=== PATIENT | male | born 1960 | race Caucasian/White ===

== ENCOUNTER → 2019-09-30 13:37 | Outpatient (BNVA) | payer OTHER, SELFPAY | PROVIDERS: PCP Family Medicine; Visit Provider Nurse Practitioner | DX: R50.9 Fever, unspecified (principal) | CPT/HCPCS: 85025; 87804 ==

== ENCOUNTER 2020-03-30 11:25 | Outpatient (CLI) | payer OTHER, SELFPAY ==
--- NOTE | 2020-03-30 11:30 | MR_ITS ---
WS: [id number] MRI HEAD WITH CONTRAST TECHNIQUE: Sagittal T1, T2 axial, T2 axial FLAIR, axial susceptibility weighted imaging, axial diffus ion weighted images, and coronal T2 images were obtained. Pre and post-T1 axial and post T1 coronal i mages. ADC and FSPGR images. CLINICAL INFORMATION: HEADACHE DUE TO INTRACRANIAL DISEASE COMPARISON: None. FINDINGS: No evidence of restricted diffusion to suggest acute ischemia. Ventricular system and basal cisterns are patent. Minimal small vessel changes. Moderate parenchymal volume loss. Normal posterior fossa. N ormal vascular flow voids at the skull base. No extra-axial fluid collections. Mild mucosal thickenin g in the paranasal sinuses. Mild mucosal thickening left mastoid air cells. Normal optic chiasm and pituitary infundibulum. Temporal lobes and hippocampal formations are normal in appearance. No hemosiderin on susceptibly weighted images. No abnormal gadolinium enhancement. Nor mal dural venous sinuses. MR/MR head wo/w con [id number] IMPRESSION: 1. No evidence of restricted diffusion to suggest acute ischemia. 2. Minimal small vessel changes. Moderate parenchymal volume loss. 3. No hydrocephalus. 4. No abnormal intracranial enhancement. 5. Mild mucosal thickening paranasal sinuses and mastoid air cells. 6. No other significant findings.
[2020-03-30 12:19] LABS: Blood Urea Nitrogen 20 mg/dL (8-23); Glomerular Filtration Rate 56.3 mL/min (90-130)
== END 2020-03-30 11:26 | disposition home or self-care (01) ==
LOC: RADSHAW 11:29
PROVIDERS: PCP Family Medicine; Visit Provider Family Medicine
DX: R51 Headache (principal)
CPT/HCPCS: 70553; 82565; 84520; A9579

== ENCOUNTER 2020-08-19 11:11 | Outpatient (CLI) | payer OTHER, SELFPAY ==
[2020-08-19 11:20] VITALS: BMI 34.9
--- NOTE | 2020-08-19 11:21 | ECG_ITS ---
[facility] Test Date: 2020-08-19 Pat Name: Fili Jeffries Department: Room: Gender: Male Administration Manager: : 1960 Requested By: Saad Manley Order Number: [id number] Riley MD: Melissa Kenny M.D. Interpretive Statements NAME OF STUDY: TREADMILL STRESS TEST INDICATION: Chest Pain PROCEDURE: At the baseline, the patient's blood pressure was with a heart rate of. The baseline electrocardiogram showed normal sinus rhythm with right bundle branch block pattern. Some nonspecific T wave changes. The patient exercised for 5 minutes 29 seconds on a standard Dandre protocol. Patient attained a maximum heart rate of 144 beats per minute( 90 % of the maximum predicted heart rate) with a blood pressure at the peak exercise of 167/108 mm Hg. The EKG at the peak exercise revealed no significant changes. Patient did not have any chest pain or any significant cardiac arrhythmias with the exercise During the recovery phase, there were no new changes. The blood pressure went up to 221/123 during the recovery phase Blood pressure at the end of the recovery phase was 132/89 mm Hg with a heart rate of 79 per minute. CONCLUSION: 1. Nonspecific EKG changes with the treadmill exercise 2. No exercise-induced chest pain or cardiac arrhythmia. Hypertensive response to exercise 3. Somewhat impaired exercise tolerance, attained a maximum of 7.0 METs Electronically Signed On 08-20-2020 14:00:43 PHARMACOLOGY ASSOCIATE by Melissa Kenny M.D. [id number]
[2020-08-19 12:00] VITALS: BP 132/89; PULSE 79
== END 2020-08-19 11:12 | disposition home or self-care (01) ==
PROVIDERS: PCP Family Medicine; Visit Provider Family Medicine
DX: R07.9 Chest pain, unspecified (principal)
CPT/HCPCS: 93017

== ENCOUNTER 2021-08-20 10:17 | Observation (INO) | payer OTHER, SELFPAY ==
[2021-08-20] VITALS (12 sets, daily range): BP systolic 113–165; BP diastolic 70–109; PULSE 52–63; RESP 14–20; TEMP 36.8; O2SAT 96–100; BMI 35.5
--- NOTE | 2021-08-20 10:21 | XRR_ITS ---
PROCEDURE INFORMATION: Exam: XR Chest Exam date and time: 08/20/2021 10:21 AM Age: 61 years old Clinical indication: Pain; Chest pressure; Additional info: Chest pain TECHNIQUE: Imaging protocol: XR of the chest. Views: 1 view. Total images: 1 COMPARISON: CR XR cervical spine 4-5V [id number] 10/25/2020 12:12 PM FINDINGS: Lungs: Trace atelectasis or scar noted in the left lung base. Pleural spaces: Unremarkable. No pleural effusion. No pneumothorax. Heart/Mediastinum: Unremarkable. No cardiomegaly. Diaphragm: There is nonspecific elevation of the right hemidiaphragm. Bones/joints: Unremarkable. XR/XR chest 1V portable [id number] IMPRESSION: Trace atelectasis or scar noted in the left lung base.
--- NOTE | 2021-08-20 10:39 | W.ED.CHESTPA ---
HPI - Chest Pain General: Chief Complaint: ER Hold Stated Complaint: CHEST PAIN Time Seen by Provider: 08/20/21 10:28 History of Present Illness: HPI narrative: 61-year-old male who presents to the emergency room with complaint of chest pain. He was sitting at home and began to get left-sided chest discomfort that he rates a 6-7 out of 10 it radiated into his shoulders bilaterally he took 325 mg of aspirin called EMS he got relief of the chest pain after the 3rd sublingual nitro he states he had no improvement of symptoms after the 1st nitro. Patient did test positive for COVID in early August he has been symptom-free for several days now he does not have any shortness of breath at this time. He did get a little bit of nausea but no vomiting. No diaphoresis. He did have some stress testing done but he states that was approximately 10 years ago. At that time it was reported to him as normal. He is not diabetic he does chew tobacco but does not smoke. He is on fenofibrate for hyperlipidemia. complaint: chest pain Onset (ago): hour(s) Timing of current episode: episodic Onset: during rest Pain location: left chest Pain radiation: right arm and left arm Quality: tightness and heaviness Relieving factors: nitroglycerin Exacerbating factors: nothing Associated symptoms: Deny abdominal pain, diaphoresis, dyspnea, fever(s), leg edema, nausea, palpitations, sense of impending doom, syncope or vomiting Treatment prior to arrival: aspirin, nitroglycerin and oxygen Review of Systems Const: Denies: fever(s) or diaphoresis ENMT: Denies: throat pain, ear or mastoid pain, nasal discharge or nasal congestion Card: Denies: palpitations or syncope Resp: Denies: dyspnea GI: Denies: abdominal pain, nausea or vomiting : Denies: flank pain, dysuria, urinary frequency or urinary urgency Skin/Breast: Denies: rash or pruritus PFSH ED PFSH: Medical History Hyperlipidemia, unspecified Surgical History History of hip surgery Left History of tonsillectomy Family History Other Cancer History of heart attack Hypertension Stroke Denies family history of Diabetes Social History Smoking and tobacco status: current every day smoker (chew) Second hand smoke exposure: No Smoking risk assessment/counseling performed?: No Alcohol intake: current Alcohol intake frequency: holidays/special occasions only Desire information about alcohol rehabilitation?: No Counseling given: No Desire information about substance/drug rehabilitation?: No Counseling given: No Caregiver/support person: No Lives independently: Yes Household members: spouse Housing: House Marital status: Number of children: 2 service: No Current occupational status: employed History of recent travel: No Current gender identity: Male Physical Exam Const: COMMON NORMALS: no acute distress GENERAL APPEARANCE: cooperative and comfortable ORIENTATION/CONSCIOUSNESS: Yes awake, Yes oriented to person, Yes oriented to place and Yes oriented to time HENMT: COMMON NORMALS: normocephalic, atraumatic and hearing grossly normal bilaterally HEAD & SCALP: normocephalic and atraumatic Neck/C-Spine: COMMON NORMALS: no JVD Resp: COMMON NORMALS: normal respiratory effort, No retractions, No use of accessory muscles and clear to auscultation bilaterally AUSCULTATION: clear to auscultation bilaterally Cardio: COMMON NORMALS: no JVD, regular rate, regular rhythm and No murmurs present (Cardio) RATE: regular rate RHYTHM: regular rhythm GI: COMMON NORMALS: Soft to palpation and No hepatosplenomegaly present AUSCULTATION: Yes normoactive bowel sounds PALPATION: Yes Soft to palpation, No Tenderness to palpation present (GI), No Guarding due to palpation present (GI) and Yes No hepatosplenomegaly present Extremity: COMMON NORMALS: normal to inspection, capillary refill normal, no clubbing, cyanosis or edema, no calf tenderness and no pedal edema Neuro: SENSORIUM/ORIENTATION: Yes oriented to person, Yes oriented to place and Yes oriented to time Skin: COMMON NORMALS: no rashes or lesions noted GENERAL SKIN EXAM: no rashes or lesions noted Course Vital Signs: Vital signs: Vital Signs Temperature 98.6 F 08/22/21 11:27 Pulse Rate 62 08/22/21 12:13 Respiratory Rate 17 08/22/21 10:50 Blood Pressure 125/79 08/22/21 12:13 Pulse Oximetry 96 08/22/21 12:13 MDM - Chest Pain MDM Narrative Medical decision making narrative: Patient complaint of chest pain initial cardiac enzymes unremarkable we will admit discussed with hospitalist orders written consult cardiology Lab Data Result diagrams: 08/22/21 06:40 08/22/21 03:23 Labs: Lab Results 08/20/21 08/20/21 08/20/21 10:45 10:45 10:45 WBC 3.8 10^3/uL L 10^3/uL (4.0-10.0) RBC 4.30 10^6/uL 10^6/uL (4.1-5.3) Hgb 13.3 g/dL g/dL (11.7-16.6) Hct 40.1 % L % (42.0-52.0) MCV 93.3 fl fl (80-94) MCH 30.9 pg pg (28.0-34.0) MCHC 33.2 g/dL g/dL (30.0-36.0) RDW 12.8 % % (12.1-15.1) Plt Count 175 10^3/cmm 10^3/cmm (130-400) MPV 11.6 fL H fL (7.4-10.4) Neut % (Auto) 42.4 % % Lymph % (Auto) 39.3 % % [place] % (Auto) 11.4 % % Eos % (Auto) 5.8 % % Baso % (Auto) 1.1 % % Neut # (Auto) 1.60 10^3/uL L 10^3/uL (1.8-7.7) Lymph # (Auto) 1.5 10^3/uL 10^3/uL (0.8-4.8) [place] # (Auto) 0.4 10^3/uL 10^3/uL (0.2-0.9) Eos # (Auto) 0.2 10^3/uL 10^3/uL (0.0-0.8) Baso # (Auto) 0.0 10^3/uL 10^3/uL (0.0-0.1) Nucleated RBC % (auto) 0 % % Nucleated RBCs # 0.0 /100WBC /100WBC Sodium 141 mmol/L mmol/L (136-145) Potassium 3.8 mmol/L mmol/L (3.5-5.1) Chloride 109 mmol/L H mmol/L (98-107) Carbon Dioxide 20 mmol/L L mmol/L (22-29) Anion Gap 15.8 (5-19) BUN 15 mg/dL mg/dL (8-23) Creatinine 0.8 mg/dL mg/dL (0.7-1.2) GFR Calculation 98.0 mL/min mL/min (90-130) Glucose 67 mg/dL mg/dL (65-115) Estimat Average Glucose Hemoglobin A1c Calculated Osmolality 291 mOsm/kg mOsm/kg (285-295) Calcium 7.6 mg/dL L mg/dL (8.5-10.5) Total Bilirubin 0.3 mg/dL mg/dL (0.15-1.2) AST 24 U/L U/L (0-40) ALT 23 U/L U/L (0-41) Alkaline Phosphatase 46 IU/L IU/L (40-130) Troponin T Baseline 8 ng/L ng/L (0-15) Total Protein 5.0 g/dL L g/dL (6.6-8.7) Albumin 3.3 g/dL L g/dL (3.5-5.2) Globulin 1.7 g/dL g/dL (1.3-4.6) Triglycerides Cholesterol LDL Cholesterol, Calc HDL Cholesterol LDL/HDL Ratio Cholesterol/HDL Ratio TSH 08/20/21 08/20/21 08/20/21 10:45 10:45 10:45 WBC RBC Hgb Hct MCV MCH MCHC RDW Plt Count MPV Neut % (Auto) Lymph % (Auto) [place] % (Auto) Eos % (Auto) Baso % (Auto) Neut # (Auto) Lymph # (Auto) [place] # (Auto) Eos # (Auto) Baso # (Auto) Nucleated RBC % (auto) Nucleated RBCs # Sodium Potassium Chloride Carbon Dioxide Anion Gap BUN Creatinine GFR Calculation Glucose Estimat Average Glucose 114 Hemoglobin A1c 5.6 % % (4.0-6.0) Calculated Osmolality Calcium Total Bilirubin AST ALT Alkaline Phosphatase Troponin T Baseline Total Protein Albumin Globulin Triglycerides 80 mg/dL mg/dL (0-150) Cholesterol 193 mg/dL mg/dL (0-200) LDL Cholesterol, Calc 141 mg/dL H mg/dL (50-129) HDL Cholesterol 36 mg/dL L mg/dL (60-100) LDL/HDL Ratio 3.92 RATIO H RATIO (0.00-3.22) Cholesterol/HDL Ratio 5.36 mg/dL H mg/dL (1.0-5.00) TSH 2.58 uIU/mL uIU/mL (0.27-4.20) Discharge Plan Discharge Patient Disposition: Admitted As Inpatient Admit Provider: Gabriel Puga Clinical Impression: Chest pain Condition: Stable Coding Level of Care Code ED 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
--- NOTE | 2021-08-20 10:42 | PC.NURSE ---
Pt connected to continuous cardiac, O2 and BP monitoring at bedside.
[2021-08-20 10:54] LABS: Basophils % 1.1 %; Eosinophils # 0.2 10^3/uL (0.0-0.8); Eosinophils % 5.8 %; Hematocrit 40.1 % (42.0-52.0); Hemoglobin 13.3 g/dL (11.7-16.6); Lymphocytes # 1.5 10^3/uL (0.8-4.8); Lymphocytes % 39.3 %; Mean Corpuscular HGB Conc 33.2 g/dL (30.0-36.0); Mean Corpuscular Hemoglobin 30.9 pg (28.0-34.0); Mean Corpuscular Volume 93.3 fl (80-94); Mean Platelet Volume 11.6 fL (7.4-10.4); Monocytes # 0.4 10^3/uL (0.2-0.9); Monocytes % 11.4 %; Neutrophils % 42.4 %; Nucleated Red Blood Cells % 0 %; Platelet Count 175 10^3/cmm (130-400); Red Cell Distribution Width 12.8 % (12.1-15.1); White Blood Count 3.8 10^3/uL (4.0-10.0)
[2021-08-20 11:17] LABS: Alanine Aminotransferase 23 U/L (0-41); Albumin Level 3.3 g/dL (3.5-5.2); Alkaline Phosphatase 46 IU/L (40-130); Anion Gap 15.8 (5-19); Aspartate Amino Transferase 24 U/L (0-40); Blood Urea Nitrogen 15 mg/dL (8-23); Calcium 7.6 mg/dL (8.5-10.5); Carbon Dioxide 20 mmol/L (22-29); Chloride 109 mmol/L (98-107); Globulin 1.7 g/dL (1.3-4.6); Glucose 67 mg/dL (65-115); Osmolality Calculated 291 mOsm/kg (285-295); Potassium 3.8 mmol/L (3.5-5.1); Sodium 141 mmol/L (136-145); Total Bilirubin 0.3 mg/dL (0.15-1.2)
[2021-08-20 11:42] LABS: Troponin(5th) Baseline 8 ng/L (0-15)
--- NOTE | 2021-08-20 12:21 | ECG_ITS ---
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
--- NOTE | 2021-08-20 12:41 | P.HP_ITS ---
Providers/Chief Complaint Primary Care Provider: Saad Read MD Chief Complaint: CHEAT PAIN History of Present Illness Fili Jeffries is a 61 year old male with a past medical history of recent COVID-19 infection, hypertension, hyperlipidemia, who presents [facility] for chest pain. Patient tells me that today at 9 AM, he was watching [employer], when he developed substernal pressure, with shoulder heaviness, and diaphoresis, and some shortness of breath, lasting a few minutes, nonradiating, no lightheaded, dizziness, nausea, vomiting. He had a negative stress test roughly a year ago. He has had with his COVID he tested positive due to upper sinus symptoms August 07. 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 Review of Systems Const: Denies: fever(s) Card: Reports: chest pain Resp: Reports: dyspnea GI: Denies: abdominal pain : Denies: flank pain Musc: Denies: back pain Skin/Breast: Denies: rash Neuro: Denies: headache(s) Medications/Allergies Home Medications Medication Instructions Recorded Confirmed Last Taken Type fenofibrate 160 mg tablet 160 mg PO DAILY 09/30/19 08/20/21 08/19/21 History hydrocortisone 2.5 % topical cream 1 applic TOPICAL DAILY PRN 09/30/19 08/20/21 Unknown History ketoconazole 2 % topical cream 1 applic TOPICAL DAILY PRN 09/30/19 08/20/21 Unknown History aspirin 81 mg PO DAILY 08/20/21 08/20/21 08/19/21 History azelastine 1 spray INTRANASAL BID PRN 08/20/21 08/20/21 Unknown History omega 9-njk-vav-fish oil [Fish Oil] 1 cap PO BID 08/20/21 08/20/21 08/19/21 History Allergies Allergy/AdvReac Type Severity Reaction Status Date / Time atorvastatin [From Lipitor] Allergy Unknown Unknown Verified 08/07/21 10:59 PFSH Acute PFSH: Medical History Hyperlipidemia, unspecified Surgical History History of hip surgery Left History of tonsillectomy Family History Other Cancer History of heart attack Hypertension Stroke Denies family history of Diabetes Social History Smoking and tobacco status: current every day smoker (chew) Second hand smoke exposure: No Smoking risk assessment/counseling performed?: No Alcohol intake: current Alcohol intake frequency: holidays/special occasions only Desire information about alcohol rehabilitation?: No Counseling given: No Desire information about substance/drug rehabilitation?: No Counseling given: No Caregiver/support person: No Lives independently: Yes Household members: spouse Housing: House Marital status: Number of children: 2 service: No Current occupational status: employed History of recent travel: No Current gender identity: Male Vitals/I&O/Wt Last Vital Signs Pulse 58 L 08/20/21 12:33 Resp 14 08/20/21 12:33 BP 150/86 08/20/21 12:33 Pulse Ox 99 08/20/21 12:33 Weight last 48 hrs Weight 136.078 kg Physical Exam Const: COMMON NORMALS: no acute distress and patient oriented x3 GENERAL APPEARANCE: cooperative and comfortable HENMT: COMMON NORMALS: normocephalic HEAD & SCALP: normocephalic Eye: COMMON NORMALS: Equal, round and reactive pupils present and EOMs intact bilaterally GENERAL EYE: appearance normal, both eyes and all related structures PUPIL: Yes Equal, round and reactive pupils present Neck/C-Spine: COMMON NORMALS: full ROM and no lymphadenopathy THYROID: Thyroid normal Lymph: LYMPHATIC: no lymphadenopathy noted Resp: COMMON NORMALS: normal respiratory effort, No retractions, No use of accessory muscles and clear to auscultation bilaterally AUSCULTATION: clear to auscultation bilaterally Cardio: COMMON NORMALS: regular rate, regular rhythm, S1 normal heart sound present, S2 normal heart sound present, No gallops present (Cardio), No clicks present (Cardio) and No murmurs present (Cardio) RATE: regular rate RHYTHM: regular rhythm HEART SOUNDS: S1 normal heart sound present and S2 normal heart sound present GI: COMMON NORMALS: Normal to inspection, nondistended, normoactive bowel soun ds present, Soft to palpation, non-tender and No hepatosplenomegaly present PALPATION: Yes Soft to palpation and Yes No hepatosplenomegaly present Extremity: COMMON NORMALS: normal to inspection, full ROM and no pedal edema Neuro: COMMON NORMALS: patient oriented x3, CN's II-XII intact bilaterally, moves all extremities and no focal motor deficits Psych: COMMON NORMALS: mental status grossly normal, Normal thought process present and cooperative THOUGHT PROCESS: Normal thought process present Data : 08/20/21 10:45 08/20/21 10:45 A&P Assessment and plan (1) Chest pain: - Admit to cardiac stepdown unit -Aspirin, statin -Nitro as needed for chest pain -Serial troponins, serial EKGs -Telemetry monitoring -Cardiac echocardiogram -History of COVID, D-dimer, ultrasound venous -Full code -Lovenox for DVT prophylaxis Status: Acute Attestations Medical Necessity Statement*: Patient requires hospitalization, outpatient observation, for chest pain Coding Level of Care Code Acute Infection Preventionist for Prashanth Carrington Diagnoses Chest pain R07.9
[2021-08-20 13:14] LABS: D Dimer 0.42 ug/mIFEU (0-0.59)
[2021-08-20 13:17] LABS: Chol HDL Ratio 5.36 mg/dL (1.0-5.00); Cholesterol 193 mg/dL (0-200); HDL Cholesterol 36 mg/dL (60-100); LDL Cholesterol Calculated 141 mg/dL (50-129); LDL HDL Ratio 3.92 RATIO (0.00-3.22); Triglycerides 80 mg/dL (0-150)
[2021-08-20 13:19] LABS: Troponin 5 2HR 7.18 ng/L (0-15)
[2021-08-20 13:24] LABS: Estmated Average Glucose 114; Hemoglobin A1C 5.6 % (4.0-6.0)
[2021-08-20 13:27] LABS: Troponin 5 2HR Delta -0.82 ABS# (0-10)
--- NOTE | 2021-08-20 14:09 | USCV_ITS ---
Fili Jeffries Age: 61 Gender: M : 1960 Exam Date: 08/20/2021 15:32 Ordering Phys: Gabriel Puga MD Technologist: Adelaide Lua [place] [facility] [place]: Shortness of breath BP: 126 / 76 HR: 51 Rhythm: Sinus Technical Quality: Technically difficult study MEASUREMENTS (Male / Female) Normal Values 2D ECHO LV Diastolic Diameter PLAX 5.0 cm 4.2 - 5.9 / 3.9 - 5.3 cm LV Systolic Diameter PLAX 3.1 cm IVS Diastolic Thickness 1.3 cm 0.6 - 1.0 / 0.6 - 0.9 cm IVS Systolic Thickness 1.7 cm LVPW Diastolic Thickness 1.0 cm 0.6 - 1.0 / 0.6 - 0.9 cm LVPW Systolic Thickness 1.2 cm RV Chamber Size 2.7 cm LVOT Diameter 2.1 cm LV Ejection Fraction 2D Teich 68.2 % LV Ejection Fraction MOD 2C 55.7 % LV Ejection Fraction 2C AL 57.2 % LA Diameter 3.4 cm LA Width 2.9 cm LA Height 5.4 cm RA Width 3.0 cm RA Height 5.3 cm Aorta at Sinotubular Diameter 3.8 cm M-MODE Aortic Annulus Diameter 4.2 cm LA Ao Ratio MM 0.9 MV E Point Septal Separation 0.4 cm DOPPLER AV Peak Velocity 95.0 cm/s LVOT Peak Velocity 81.0 cm/s AV Area Cont Eq vti 3.1 cm squared AV Area Cont Eq pk 2.9 cm squared MV Area PHT 6.5 cm squared Mitral E to A Ratio 1.0 MV E' Velocity 33.0 cm/s Mitral E to MV E' Ratio 6.2 Mitral E to LV E' Lateral Ratio 5.2 Mitral E to LV E' Septal Ratio 7.8 TR Peak Velocity 191.7 cm/s TR Peak Gradient 14.7 mmHg TV Peak E Velocity 37.0 cm/s RV Acceleration Time 0.1 s RV Ejection Time 0.3 s RV AcT/ET 0.5 FINDINGS Left Ventricle Normal left ventricular cavity size. Normal left ventricular systolic function. No regional wall motion abnormalities. Left ventricular ejection fraction is estimated at 60 %. Grade II/IV diastolic dysfunction, moderately elevated filling pressures. Right Ventricle The right ventricle is normal in size and function. RVSP could not be calculated due to incomplete tricuspid regurgitation velocity profile. Right Atrium The right atrium is normal in size. Left Atrium The left atrium is normal in size. Mitral Valve Structurally normal mitral valve without significant stenosis or prolapse. There is no mitral regurgitation. Aortic Valve Structurally normal aortic valve without significant sclerosis or stenosis. There is no aortic regurgitation. Tricuspid Valve Structurally normal tricuspid valve without significant stenosis or regurgitation. Pulmonic Valve Structurally normal pulmonic valve without significant stenosis. There is no pulmonic regurgitation. Pericardium Normal pericardium without effusion. Aorta Normal ascending aorta dimension. CONCLUSIONS 1-Normal left ventricular cavity size. Normal left ventricular systolic function. No regional wall motion abnormalities. Left ventricular ejection fraction is estimated at 60 %. Grade II/IV diastolic dysfunction, moderately elevated filling pressures. 2-There is no pericardial effusion. 3-No significant valve abnormalities. 4-There are no prior echocardiogram studies to compare. Melvi Hector MD (Electronically Signed) Final Date: 20 August 2021 17:18 S
--- NOTE | 2021-08-20 14:09 | USR_ITS ---
PROCEDURE INFORMATION: Exam: US Duplex Lower Extremity Veins, Bilateral Exam date and time: 08/20/2021 2:09 PM Age: 61 years old Clinical indication: Swelling (edema) of limb; Lower extremity, bilateral TECHNIQUE: Imaging protocol: Real-time duplex ultrasound of the extremities with 2-D ron scale, color Doppler flow and spectral waveform analysis with image documentation. Complete exam focused on the bilateral lower extremity veins. COMPARISON: No relevant prior studies available. FINDINGS: Right deep veins: Unremarkable. The common femoral, femoral, proximal profunda femoral and popliteal veins are patent without thrombus. Normal Doppler waveforms. Normal compressibility and/or augmentation response. Right superficial veins: Saphenofemoral junction is patent without thrombus. Left deep veins: Unremarkable. The common femoral, femoral, proximal profunda femoral and popliteal veins are patent without thrombus. Normal Doppler waveforms. Normal compressibility and/or augmentation response. Left superficial veins: Saphenofemoral junction is patent without thrombus. Soft tissues: Unremarkable. US/CV venous duplex [facility] [id number] IMPRESSION: No evidence of deep vein thrombosis.
[2021-08-20] MEDS: enoxaparin 40 mg/0.4 mL Syringe SUBCUT (14:25)
[2021-08-20 14:45] LABS: Thyroid Stimulating Hormone 2.58 uIU/mL (0.27-4.20)
--- NOTE | 2021-08-20 16:21 | ECG_ITS ---
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
[2021-08-20 17:02] LABS: Troponin 5 6HR 7.78 ng/L (0-15)
[2021-08-20 17:16] LABS: Troponin 5 6HR Delta -0.22 ng/L (0-12)
[2021-08-20] MEDS: famotidine 20 mg Tablet PO (17:50)
--- NOTE | 2021-08-20 19:31 | PC.NURSE ---
bedside report received, respirations even equal and unlabored, comfort measures offered. tele in place. room cleared of extra items. speech clear, denies pain at this time.
[2021-08-21 01:45] VITALS: BMI 35.0
[2021-08-21 04:30] VITALS: PULSE 46
[2021-08-21 05:50] LABS: Basophils % 0.8 %; Eosinophils # 0.2 10^3/uL (0.0-0.8); Eosinophils % 4.6 %; Hematocrit 47.2 % (42.0-52.0); Hemoglobin 15.6 g/dL (11.7-16.6); Lymphocytes # 1.8 10^3/uL (0.8-4.8); Lymphocytes % 36.5 %; Mean Corpuscular HGB Conc 33.1 g/dL (30.0-36.0); Mean Corpuscular Hemoglobin 30.8 pg (28.0-34.0); Mean Corpuscular Volume 93.1 fl (80-94); Mean Platelet Volume 11.5 fL (7.4-10.4); Monocytes # 0.5 10^3/uL (0.2-0.9); Monocytes % 9.8 %; Neutrophils # 2.32 10^3/uL (1.8-7.7); Neutrophils % 48.1 %; Nucleated Red Blood Cells % 0 %; Platelet Count 172 10^3/cmm (130-400); Red Blood Count 5.07 10^6/uL (4.1-5.3); Red Cell Distribution Width 12.7 % (12.1-15.1); White Blood Count 4.8 10^3/uL (4.0-10.0)
[2021-08-21 06:12] LABS: Blood Urea Nitrogen 14 mg/dL (8-23); Calcium 8.7 mg/dL (8.5-10.5); Carbon Dioxide 22 mmol/L (22-29); Chloride 105 mmol/L (98-107); Glomerular Filtration Rate 75.7 mL/min (90-130); Glucose 90 mg/dL (65-115); Magnesium 1.9 mg/dL (1.7-2.3); Osmolality Calculated 288 mOsm/kg (285-295); Phosphorus 2.9 mg/dL (2.5-4.5); Sodium 139 mmol/L (136-145)
[2021-08-21 06:19] LABS: Anion Gap 16.2 (5-19); Potassium 4.2 mmol/L (3.5-5.1)
[2021-08-21] MEDS: famotidine 20 mg Tablet PO ×2 (08:31→17:18)
[2021-08-21] MEDS: aspirin 81 mg Chew Tablet PO (08:31)
--- NOTE | 2021-08-21 11:10 | PM.PN ---
Subjective Subjective: Interval history: Patient was seen this morning, afebrile overnight, no chest pain, shortness of breath, no palpitations, no lightheaded, dizziness Vitals/I&O/Wt Last Vital Signs Temp 98.2 F 08/20/21 23:16 Pulse 46 L 08/21/21 04:30 Resp 15 08/20/21 23:16 BP 165/109 08/20/21 23:16 Pulse Ox 98 08/20/21 23:16 08/20/21 08/21/21 08/21/21 22:59 06:59 14:59 Intake Total 200 / 200 220 / 420 200 / 200 Output Total 600 / 600 1000 / 1600 420 / 420 Balance -400 / -400 -780 / -1180 -220 / -220 Weight last 48 hrs Weight 134.082 kg Weight 136.078 kg Physical Exam Const: COMMON NORMALS: no acute distress and patient oriented x3 Resp: COMMON NORMALS: normal respiratory effort, No retractions, No use of accessory muscles and clear to auscultation bilaterally AUSCULTATION: clear to auscultation bilaterally Cardio: COMMON NORMALS: regular rate, regular rhythm, S1 normal heart sound present and S2 normal heart sound present RATE: regular rate RHYTHM: regular rhythm HEART SOUNDS: S1 normal heart sound present and S2 normal heart sound present GI: COMMON NORMALS: Normal to inspection, nondistended, normoactive bowel sounds present, Soft to palpation and non-tender PALPATION: Yes Soft to palpation Neuro: COMMON NORMALS: patient oriented x3 Psych: COMMON NORMALS: mental status grossly normal Data : 08/21/21 05:43 08/21/21 05:43 A&P Assessment and plan (1) Chest pain: - Admit to cardiac stepdown unit -Aspirin, statin -Nitro as needed for chest pain -Serial troponins no significant delta troponin, serial EKGs no significant ST-T wave changes -Telemetry monitoring -Cardiac echocardiogram 1-Normal left ventricular cavity size. Normal left ventricular systolic function. No regional wall motion abnormalities. Left ventricular ejection fraction is estimated at 60 %. Grade II/IV diastolic dysfunction, moderately elevated filling pressures. 2-There is no pericardial effusion. 3-No significant valve abnormalities. 4-There are no prior echocardiogram studies to compare. 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
--- NOTE | 2021-08-21 13:57 | PM.CONSULT ---
Providers/Reason For Consult Consulting Physician/Specialty*: Cardiology Reason for Consult*: Chest pain Attending Physician: Gabriel Puga MD Primary Care Provider: Saad Read MD History of Present Illness History of Present Illness Fili Jeffries is a 61 year old male past medical history significant for obesity, hypertension, hyperlipidemia, and chewing tobacco admitted with chest pain radiating to neck both shoulders. Patient was ruled out for acute coronary syndrome, patient had a stress test last year which was negative despite the fact he continues to have off-and-on chest pressure. Patient had contracted COVID infection few weeks ago in the last few days of July 2021 he has gotten over it but still has some bronchitis. He has noticed that he has worsening of shortness of breath upon exertion for the last few months. Yesterday he started feeling chest pain radiating both neck arm he called 911 he was given 3 nitroglycerin which relieved the chest pain. It is the reason we have been asked to assess him. Twelve-lead EKG did not show significant ST ST changes nor there is high cardiac markers, echocardiogram also showed normal ejection fraction. Medications/Allergies Home Medications Medication Instructions Recorded Confirmed Last Taken Type fenofibrate 160 mg tablet 160 mg PO DAILY 09/30/19 08/20/21 08/19/21 History hydrocortisone 2.5 % topical cream 1 applic TOPICAL DAILY PRN 09/30/19 08/20/21 Unknown History ketoconazole 2 % topical cream 1 applic TOPICAL DAILY PRN 09/30/19 08/20/21 Unknown History aspirin 81 mg PO DAILY 08/20/21 08/20/21 08/19/21 History azelastine 1 spray INTRANASAL BID PRN 08/20/21 08/20/21 Unknown History omega 8-vlb-myz-fish oil [Fish Oil] 1 cap PO BID 08/20/21 08/20/21 08/19/21 History Allergies Allergy/AdvReac Type Severity Reaction Status Date / Time atorvastatin [From Lipitor] Allergy Unknown Unknown Verified 08/07/21 10:59 Current Medications Generic Name Dose Route Start Last Admin Trade Name Freq PRN Reason Stop Dose Admin Aspirin 81 mg 08/21/21 09:00 08/21/21 08:31 Aspirin 81 Mg Chew Tablet PO 81 mg DAILY MARILYN Administration Enoxaparin Sodium 40 mg 08/20/21 14:09 08/20/21 14:25 Enoxaparin 40 Mg/0.4 Ml Syringe SUBCUT 40 mg Q24H MARILYN Administration Famotidine 20 mg 08/20/21 18:00 08/21/21 08:31 Famotidine 20 Mg Tablet PO 20 mg BID MARILYN Administration Non-Formulary Medication 160 mg 08/21/21 09:00 08/21/21 10:04 Fenofibrate PO Not Given DAILY MARILYN PFSH Acute PFSH: Medical History Hyperlipidemia, unspecified Surgical History History of hip surgery Left History of tonsillectomy Family History Other Cancer History of heart attack Hypertension Stroke Denies family history of Diabetes Social History Smoking and tobacco status: current every day smoker (chew) Second hand smoke exposure: No Smoking risk assessment/counseling performed?: No Alcohol intake: current Alcohol intake frequency: holidays/special occasions only Desire information about alcohol rehabilitation?: No Counseling given: No Desire information about substance/drug rehabilitation?: No Counseling given: No Caregiver/support person: No Lives independently: Yes Household members: spouse Housing: House Marital status: Number of children: 2 service: No Current occupational status: employed History of recent travel: No Current gender identity: Male Vitals/I&O/Wt Last Vital Signs Temp 98.2 F 08/20/21 23:16 Pulse 46 L 08/21/21 04:30 Resp 15 08/20/21 23:16 BP 165/109 08/20/21 23:16 Pulse Ox 98 08/20/21 23:16 08/20/21 08/21/21 08/21/21 22:59 06:59 14:59 Intake Total 200 / 200 220 / 420 440 / 440 Output Total 600 / 600 1000 / 1600 860 / 860 Balance -400 / -400 -780 / -1180 -420 / -420 Weight last 48 hrs Weight 295 lb 9.6 oz Weight 300 lb Physical Exam Narrative: EXAM NARRATIVE: GENERAL: Patient is alert, awake and oriented x3. NECK: No jugular vein distension. HEENT: No cyanosis. No icterus. No pallor. HEART: Regular S1 and S2. No murmur, rub or gallop. LUNGS: Clear to auscultate bilaterally. ABDOMEN: Soft, nontender and nondistended. Positive bowel sounds. No guarding, rebound or tenderness. CENTRAL NERVOUS SYSTEM: Grossly nonfocal. EXTREMITIES: Lower extremities without edema bilaterally. A&P Assessment and plan (1) Chest pain: Worsening of chest pressure along with shortness of breath going on for the last few months in a patient with history of dyslipidemia obesity and smokeless tobacco abuse may need to be further investigated. Patient had stress test which was negative few months ago despite of that he continues to have symptoms. Since he has been admitted this time with worsening of chest pressure I think at this point he may need some invasive more sensitive and specific procedure to rule out obstructive coronary artery disease versus coronary spasm or extracardiac disease. We will therefore offer him left heart cath. Patient would like to proceed with it. I have explained in detail all risk and benefit and alternative for the procedure to the patient who would like to proceed. I will load him with 60 mg of Plavix tonight. Further plan will be devised as per progress of the patient. 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
[2021-08-21 13:59] VITALS: PULSE 52
[2021-08-21] MEDS: enoxaparin 40 mg/0.4 mL Syringe SUBCUT (15:07)
[2021-08-21] MEDS: clopidogrel 300 mg Tablet 600 MG PO (17:18)
[2021-08-21] MEDS: acetaminophen 325 mg Tablet 650 MG PO (20:38)
[2021-08-21 20:40] VITALS: BP 144/75; PULSE 56; RESP 18; TEMP 36.6; O2SAT 95
[2021-08-21 22:00] VITALS: PULSE 90
[2021-08-22] VITALS (20 sets, daily range): BP systolic 114–134; BP diastolic 67–89; PULSE 47–66; RESP 17–18; TEMP 36.7–37; O2SAT 93–99
[2021-08-22 04:01] LABS: Alanine Aminotransferase 28 U/L (0-41); Albumin Level 3.9 g/dL (3.5-5.2); Alkaline Phosphatase 58 IU/L (40-130); Blood Urea Nitrogen 16 mg/dL (8-23); Calcium 8.7 mg/dL (8.5-10.5); Carbon Dioxide 23 mmol/L (22-29); Chloride 104 mmol/L (98-107); Globulin 2.4 g/dL (1.3-4.6); Glomerular Filtration Rate 75.7 mL/min (90-130); Glucose 93 mg/dL (65-115); Osmolality Calculated 293 mOsm/kg (285-295); Phosphorus 3.2 mg/dL (2.5-4.5); Sodium 141 mmol/L (136-145); Total Bilirubin 0.4 mg/dL (0.15-1.2); Total Protein 6.3 g/dL (6.6-8.7)
[2021-08-22 04:10] LABS: Aspartate Amino Transferase 25 U/L (0-40)
--- NOTE | 2021-08-22 05:56 | XACV_ITS ---
Exam Room: [facility] Ht: 196 cm Wt: 134 kg BSA: 2.73 m2 Gender: Male : 1960 Any Known Allergies: Other Exam Priority: Routine Procedure(s): Procedure Description: Diagnostic procedure Procedure Description: Left Heart Catheterization TIMURyder, Tawny; Diagnostic Cath Status: Urgent Diagnostic Findings * No disease noted in the Left Main, Left Anterior Descending, Right, or Circumflex coronary arteries. * Coronary angiography shows right dominance. PCI Status: Urgent Conclusions 1. No disease noted in the Left Main, Left Anterior Descending, Right, or Circumflex coronary arteries. Recommendations * Continue current medical management and risk factor modification. Diagnostic RX Recommendation: medical therapy and/or counseling Clinical Evaluation EBL: 5mL-10mL Procedural Details Procedure Consent Obtained. Admit Source: In Patient. Current Diagnosis : Chest Pain. Pre-Procedure Time Out. Identified patient by full name and date of as verbalized by the patient/guarantor. Does the consent match the physician's order: Yes. Accurate & Complete Informed Consent: Yes. Inpatient/Outpatient History & Physical on Chart: Yes. If H&P is completed, is and addenduem needed: No; If yes, is the addendum complete: N/A. Visualize and Verify Site with Patient/Guarantor: N/A. Relevant Radiology Images available: N/A. The risks, benefits, and alternatives of sedation and/or procedure were discussed by physician. The patient agrees to continue. Equipment: 5F - Radial. Cardiac Cath Pack. ACIST Manifold Kit Model BT 2000. Heparinized Saline (2 units/mL), 1000 mL bag. Equipment: 6F - Radial. Equipment: 5F - Femoral. Equipment: 6F - Femoral. Satnam Batista RN, UNIT DIRECTOR was relieved by Oliva Leon RT as monitoring person. Procedure started. Pre Procedural Pulses: left dorsalis pedis was 3+. Pre Procedural Pulses: right dorsalis pedis was Doppled. Pre Procedural Pulses: right posterior tibial was 1+. Correct patient, site and procedure confirmed by cath team. PERRLA. Strong, equal hand podiatric surgeon bilaterally. Lungs clear x 5 lobes. IV Site on Arrival: 18 gauge in the left anticubital. Oxygen started at 2liters/min via nasal canula. bilateral groins was prepped with chloroprep then draped in the usual sterile fashion. right radial was prepped with chloroprep then draped in the usual sterile fashion. Baseline sample Acquired. HR: 41 BPM. Baseline sample Acquired. HR: 56 BPM. Physician notified. Physician arrived. Physician scrubbed in. Immediate Pre-Procedure Time Out. Correct Patient: Yes; Correct Procedure: Yes; Correct Site: Yes; Correct Patient Position: Yes; Correct Supplies: Yes; Dried Flammable Prep: Yes; Blood Products Available: N/A;. Lidocaine 1% infiltrated to the right radial. Arterial access obtained. A 6 romanian TIG catheter in over wire. Multiple views taken of left coronary artery. Catheter redirected to the RCA. Multiple views taken of right coronary artery. Catheter out. TR band placed. Hemostasis obtained. Post Procedure: Pulses reassessed and unchanged. PERRLA. Strong, equal hand podiatric surgeon bilaterally. No VTE prophylaxis required. Medication's Wasted: Lidocaine 1% = 18 mL. Medication's Wasted: Nitro = 49.8 mg. Medication's Wasted: Heparin = 1000 units. Total IV fluids: 50 mL. Contrast type used: Visipaque 320 mgI/mL, 500 mL bottle. Contrast Material : Visipaque 61 ml. [facility] Clinical Fraility Score: 3: Managing Well. Off Premise Service Representative Indications: New Onset Angina. Chest Pain Symptom Assessment: Typical Angina Symptoms. Cardiovascular Instability: No,. Post-op diagnosis: endothelial disfunction with sluggish flow of the arteries. Complications: none. Estimated blood loss: 5mL-10mL. Responsiveness - Normal response to verbal stimuli; alert and oriented, PERRLA. Airway - Unaffected, no intervention required; spontaneous ventilation. Circulation: W/N/L, pulses unchanged. Nausea/Vomiting: N/A. Procedure completed. Patient transferred by wheelchair to 1st floor. A TR Band was successful obtaining hemostatsis at the Right Radial artery insertion site. Vital chart was stopped. Access Site Site: Right Radial artery Sheath Size: 6 Fr Hemostasis Method: TR Band Hemostasis Success: Successful Procedure Medications Start: 7:19 AM Stop: 7:19 AM Medication: Versed Amount: 1 mg Route: I.V. Start: 7:25 AM Stop: 7:25 AM Medication: Fentanyl Amount: 50 mcg Route: I.V. Start: 7:31 AM Stop: 7:31 AM Medication: Nitrogylcerin Amount: 200 mcg Route: I.A. Start: 7:34 AM Stop: 7:34 AM Medication: Heparin Amount: 5000 units Route: I.V. Start: 7:44 AM Stop: 7:44 AM Medication: Versed Amount: 1 mg Route: I.V. Start: 7:44 AM Stop: 7:44 AM Medication: Fentanyl Amount: 50 mcg Route: I.V. I, the attending physician, have reviewed and verified all procedure medications. Yes, all medications given per verbal order History/Risk Factors Hypertension: Yes Dyslipidemia: Yes Peripheral Arterial Disease (PAD): No Myocardial Infarction (AZ): No Obesity: Yes Renal Disease: No Tobacco Use: Current/Recent(w/in 1 year) Prior Interventions PCI: No CABG: No Valve Surgery: No Report Signatures Finalized by Melvi Hector MD on 09/04/2021 07:32 PM
[2021-08-22] MEDS: sodium chloride 0.9% 1,000 ML 50 ML IV (06:07)
[2021-08-22] MEDS: diphenhydrAMINE 50 mg Capsule PO (06:09)
[2021-08-22 07:16] LABS: Basophils # 0.1 10^3/uL (0.0-0.1); Basophils % 1.1 %; Eosinophils # 0.3 10^3/uL (0.0-0.8); Eosinophils % 5.3 %; Hematocrit 49.8 % (42.0-52.0); Hemoglobin 16.6 g/dL (11.7-16.6); Lymphocytes # 1.9 10^3/uL (0.8-4.8); Mean Corpuscular HGB Conc 33.3 g/dL (30.0-36.0); Mean Corpuscular Hemoglobin 30.8 pg (28.0-34.0); Mean Corpuscular Volume 92.4 fl (80-94); Mean Platelet Volume 11.3 fL (7.4-10.4); Monocytes # 0.4 10^3/uL (0.2-0.9); Monocytes % 9.2 %; Neutrophils # 2.07 10^3/uL (1.8-7.7); Neutrophils % 44.2 %; Nucleated Red Blood Cells % 0 %; Platelet Count 199 10^3/cmm (130-400); Red Blood Count 5.39 10^6/uL (4.1-5.3); Red Cell Distribution Width 12.5 % (12.1-15.1); White Blood Count 4.7 10^3/uL (4.0-10.0)
--- NOTE | 2021-08-22 07:54 | W.PM.OPSUD ---
Surgery/Procedure H&P Update DATE OF PROCEDURE: August 22, 2021 DATE H&P PERFORMED: 08/21/21 H&P UPDATE INFORMATION: I have reviewed H&P completed within last 30 days, I have examined patient prior to procedure and No changes to prior documentation PREOP DIAGNOSIS: Chest pain PATIENT REASSESSED PRIOR TO SEDATION, WITH NO CHANGE NOTED: Yes PHYSICAL EXAM: alert, oriented x 3 and clear to auscultation bilaterally AIRWAY EVAL/ANESTHESIA PLAN: ASA II and Risks, benefits & alternatives of sedation and/or procedure discussed
--- NOTE | 2021-08-22 08:00 | PC.NURSE ---
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 Patient awakens easily, alert andd oriented. at bedside.
--- NOTE | 2021-08-22 08:13 | P.PN_ITS ---
Subjective Subjective: Interval history: Patient underwent coronary angiogram for recurrent chest pain. He was noted to have no significant stenosis but sluggish flow through the coronary bed most likely due to endothelial dysfunction. Vitals/I&O/Wt Last Vital Signs Temp 98.0 F 08/22/21 01:45 Pulse 49 L 08/22/21 05:26 Resp 18 08/22/21 04:15 BP 116/74 08/22/21 04:15 Pulse Ox 97 08/22/21 04:15 08/21/21 08/22/21 08/22/21 22:59 06:59 14:59 Intake Total 440 / 880 220 / 1100 Output Total 840 / 1700 420 / 2120 1000 / 1000 Balance -400 / -820 -200 / -1020 -1000 / -1000 Weight last 48 hrs Weight 295 lb 9.6 oz Weight 300 lb Physical Exam Narrative: EXAM NARRATIVE: GENERAL: Patient is alert, awake and oriented x3. NECK: No jugular vein distension. HEENT: No cyanosis. No icterus. No pallor. HEART: Regular S1 and S2. No murmur, rub or gallop. LUNGS: Clear to auscultate bilaterally. ABDOMEN: Soft, nontender and nondistended. Positive bowel sounds. No guarding, rebound or tenderness. CENTRAL NERVOUS SYSTEM: Grossly nonfocal. EXTREMITIES: Lower extremities without edema bilaterally. Const: COMMON NORMALS: alert Resp: COMMON NORMALS: clear to auscultation bilaterally AUSCULTATION: clear to auscultation bilaterally Neuro: SENSORIUM/ORIENTATION: Yes alert Data : 08/22/21 06:40 08/22/21 03:23 A&P Assessment and plan (1) Chest pain: Patient underwent coronary angiogram noted to have endothelial dysfunction without significant stenosis. Advise lifestyle modification quitting smokeless tobacco use and good glycemic cholesterol control along with long-acting nitroglycerin. After completing bedrest patient can be discharged home. 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
--- NOTE | 2021-08-22 09:48 | PM.DCS ---
Discharge Providers Date of Admission: 08/20/21 12:13 Date of Discharge: August 22, 2021 Attending Provider at Admission: Gabriel Puga MD Attending Provider at Discharge: Gabriel Puga MD Primary Care Provider: Saad Read MD Diagnoses at Discharge Discharge Diagnosis (1) Chest pain: Status: Acute Qualifiers: Chest pain type: precordial pain Qualified Code(s): R07.2 - Precordial pain (2) Hyperlipidemia, unspecified: Status: Chronic Qualifiers: Hyperlipidemia type: mixed hyperlipidemia Qualified Code(s): E78.2 - Mixed hyperlipidemia Reason for Visit Reason for Visit: CHEST PAIN Hospital Course Hospital Course Fili Jeffries is a 61 year old male with a past medical history of recent COVID-19 infection, hypertension, hyperlipidemia, who presents [facility] for chest pain. Patient was admitted to [facility] for chest pain, no significant delta troponin, EKG no acute ST-T wave changes, echocardiogram showed an EF of 60%, no regional wall motion abnormalities, grade 2 out of 4 diastolic dysfunction, had a unremarkable stress test within the last year, cardiology was consulted, underwent cardiac catheterization which did not show any clinically significant obstructive CAD. Was discharged on aspirin, fenofibrate, long-acting Imdur, follow-up with his primary care as outpatient. Advised of lifestyle modification, diet control, weight loss. Follow-up with cardiology as outpatient. Physical Exam Const: COMMON NORMALS: no acute distress and patient oriented x3 Resp: COMMON NORMALS: normal respiratory effort, No retractions, No use of accessory muscles and clear to auscultation bilaterally AUSCULTATION: clear to auscultation bilaterally Cardio: COMMON NORMALS: regular rate, regular rhythm, S1 normal heart sound present and S2 normal heart sound present RATE: regular rate RHYTHM: regular rhythm HEART SOUNDS: S1 normal heart sound present and S2 normal heart sound present GI: COMMON NORMALS: Normal to inspection, nondistended, normoactive bowel sounds present, Soft to palpation and non-tender PALPATION: Yes Soft to palpation Extremity: COMMON NORMALS: no pedal edema Neuro: COMMON NORMALS: patient oriented x3 Psych: COMMON NORMALS: mental status grossly normal Discharge Data Data Completed and Pending: Completed Studies During Hospitalization Category Date Time Status XR chest 1V brook ble [id number] Stat Exams 08/20/21 10:21 [place] [id number] Routin e Ultrasound 08/20/21 14:09 Completed CV. 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 Routin e Exams 08/22/21 05:56 Ordered Complete Blood Co unt w/Auto AM LABS Lab 08/23/21 04:00 Ordered Complete Blood Co unt w/Auto AM LABS Lab 08/24/21 04:00 Ordered Comprehensive Met abolic Panel AM LA BS Lab 08/23/21 04:00 Ordered Comprehensive Met abolic Panel AM LA BS Lab 08/24/21 04:00 Ordered Magnesium AM LABS Lab 08/23/21 04:00 Ordered Phosphorus AM LAB S Lab 08/23/21 04:00 Ordered Labs from last 24 hours 08/22/21 08/22/21 08/22/21 06:40 03:23 03:23 WBC 4.7 Cancelled Corrected WBC Cancelled RBC 5.39 H Cancelled Hgb 16.6 Cancelled Hct 49.8 Cancelled MCV 92.4 Cancelled MCH 30.8 Cancelled MCHC 33.3 Cancelled RDW 12.5 Cancelled Plt Count 199 Cancelled MPV 11.3 H Cancelled Gran % Cancelled Neut % (Auto) 44.2 Cancelled Lymph % (Auto) 40.0 Cancelled Daniels % (Auto) 9.2 Cancelled Eos % (Auto) 5.3 Cancelled Baso % (Auto) 1.1 Cancelled Neut # (Auto) 2.07 Cancelled Lymph # (Auto) 1.9 Cancelled Daniels # (Auto) 0.4 Cancelled Eos # (Auto) 0.3 Cancelled Baso # (Auto) 0.1 Cancelled Absolute Gran (aut o) Cancelled Nucleated RBC % (a uto) 0 Cancelled Nucleated RBCs # 0.0 Cancelled Sodium 141 Potassium 4.0 Chloride 104 Carbon Dioxide 23 Anion Gap 18.0 BUN 16 Creatinine 1.0 GFR Calculation 75.7 L Glucose 93 Calculated Osmolal ity 293 Calcium 8.7 Phosphorus 3.2 Magnesium 2.0 Total Bilirubin 0.4 AST 25 ALT 28 Alkaline Phosphata se 58 Total Protein 6.3 L Albumin 3.9 Globulin 2.4 Vitals: Last Vital Signs Temp 98.0 F 08/22/21 01:45 Pulse 49 L 08/22/21 05:26 Resp 18 08/22/21 04:15 BP 116/74 08/22/21 04:15 Pulse Ox 97 08/22/21 04:15 Discharge Plan Discharge Patient Disposition: Home Condition: Stable Prescriptions: New isosorbide mononitrate 30 mg Tablet Extended Release 24 Hr 30 mg PO DAILY 30 Days Qty: 30 RF: 0 Continued fenofibrate 160 mg tablet 160 mg PO DAILY RF: 0 ketoconazole 2 % cream 1 applic TOPICAL DAILY PRN (Reason: Rash) RF: 0 hydrocortisone 2.5 % cream 1 applic TOPICAL DAILY PRN (Reason: Rash) RF: 0 azelastine 137 mcg (0.1 %) aerosol,spray 1 spray intranasal BID PRN (Reason: Nasal Congestion) RF: 0 aspirin 81 mg Tablet,Chewable 81 mg PO DAILY RF: 0 Fish Oil 1,200 (144-216) mg Capsule 1 cap PO BID RF: 0 Discharge Orders: Discharge Order (Routine); Ordered 08/22/21 Ordered By: Gabriel Puga Referrals: Saad Read MD [Primary Care Provider] - 1 week Patient Instructions: Opioid Safety Activity Restrictions/Additional Instructions: - quit tobacco, lifestyle modification Discharge Attestations Time Spent in Discharge Care*: less than 30 min Quality Metrics Clinical Quality Measures During this hospital stay, did patient experience: None Coding Level of Care Code Acute [facility] note Diagnoses Chest pain R07.2 Chest pain type: precordial pain Hyperlipidemia, unspecified E78.2 Hyperlipidemia type: mixed hyperlipidemia
[2021-08-22] MEDS: fenofibrate 145 mg Tablet PO (10:43)
[2021-08-22] MEDS: aspirin 81 mg Chew Tablet PO (10:44)
[2021-08-22] MEDS: famotidine 20 mg Tablet PO (10:44)
[2021-08-22] MEDS: isosorbide mononitrate ER 30 mg Tablet PO (10:44)
--- NOTE | 2021-08-22 10:45 | PC.NURSE ---
2nd TR band removed. 2-3 ml removed every 15 minutes until deflated.
--- NOTE | 2021-08-22 10:49 | PC.PHAR ---
Patient's medications have been reviewed, and patient has been counseled on isosorbide.
--- NOTE | 2021-08-22 12:45 | PC.NURSE ---
Primary TR band removed by deflating band 2-3 ml every 15 minutes. Small amount of swelling noted above puncture site. Swelling marked with skin pen. Patient has bounding radial and ulnar puls in right wrist. Site cleand and 2x2 gauze with opsite dressing applied. Patient reminded of lifting/use restrictions that apply for the next 2 days.
== END 2021-08-22 14:00 | disposition home or self-care (01) ==
LOC: ER 12:21 → ER IP 17:36 → CSU 08-21 01:05
PROVIDERS: Internal Medicine Cardiovascular Disease; Admitting Provider Family Medicine; Emergency Provider Family Medicine; PCP Family Medicine; Visit Provider Family Medicine
DX: R07.2 Precordial pain (principal); E78.2 Mixed hyperlipidemia; Z86.16 Personal history of COVID-19; E66.9 Obesity, unspecified; Z68.35 Body mass index [BMI] 35.0-35.9, adult; I10 Essential (primary) hypertension; F17.220 Nicotine dependence, chewing tobacco, uncomplicated; Z79.82 Long term (current) use of aspirin; Z82.49 Family history of ischemic heart disease and other diseases of the circulatory system; Z82.3 Family history of stroke; M79.89 Other specified soft tissue disorders
CPT/HCPCS: 36415; 71045; 80048; 80053; 80061; 83036; 83735; 84100; 84443; 84484; 85025; 85378; 93005; 93306; 93454; 93970; 94664; 96372; 99285; C1769; C1887; C1894; G0378; J1644; J1650; J2250; J3010; J3490; J7030; Q0163; Q9967

== ENCOUNTER → 2021-09-01 11:55 | Outpatient (BNVA) | payer OTHER, SELFPAY | PROVIDERS: PCP Family Medicine; Visit Provider Nurse Practitioner Family | DX: R07.9 Chest pain, unspecified (principal); R06.02 Shortness of breath | CPT/HCPCS: 80048 ==